=== PATIENT | female | born 1990 | race Caucasian/White ===

== ENCOUNTER → 2017-02-18 | Outpatient (CLI) | payer OTHER ==
[~2017-02-18] MED LIST: HYDR-3138 PO; NITR100C SL
== END | disposition home or self-care (01) ==
LOC: LAB 12:54
PROVIDERS: ATTEND Obstetrics & Gynecology
DX: N91.2 Amenorrhea, unspecified (principal)
CPT/HCPCS: 36415; 84144

== ENCOUNTER 2017-10-25 08:12 | Day surgery (SDC) | payer BC, OTHER ==
[~2017-10-25] VITALS: Ht 177.8 cm; Wt 103.5 kg
[~2017-10-25 08:12] MED LIST changes: -HYDR-3138 PO; +HYDR-3237 PO
[2017-10-25] MEDS ORDERED: LACTATED RINGERS 1,000 ML IV SCH (08:47)
[2017-10-25 08:51] VITALS: BP 118/83
[2017-10-25] MEDS ORDERED: METF500T27 PO (08:51)
[2017-10-25] MEDS ORDERED: PLEASE ENTER HEIGHT AND WEIGHT MC SCH (09:00)
[2017-10-25 09:46] LABS: HCG UR SG 1.016 (1.003-1.030)
[2017-10-25] MEDS ORDERED: BUPIVACAINE/PF 0.5% ONE (10:24)
[2017-10-25] MEDS ORDERED: BACITRACIN ZINC OINT 500U/GM, 0.9 GM ONE (10:24)
[2017-10-25] MEDS ORDERED: PHENYLEPHRINE NASAL 0.25%, 15ML SPRAY ONE (10:25)
[2017-10-25] MEDS ORDERED: EPINEPHRINE 1 MG/ML, 1ML ONE (10:25)
[2017-10-25] MEDS ORDERED: PROPOFOL 10 MG/ML, 20ML ONE (10:32)
[2017-10-25] MEDS ORDERED: NEOSTIGMINE 1 MG/ML, 10ML ONE (10:32)
[2017-10-25] MEDS ORDERED: DEXAMETHASONE 4 MG/ML, 1ML ONE (10:32)
[2017-10-25] MEDS ORDERED: GLYCOPYRROLATE 0.2MG/1ML, 5ML ONE (10:32)
[2017-10-25] MEDS ORDERED: ONDANSETRON 2MG/ML, 2ML ONE ×2 (10:32→12:06)
[2017-10-25] MEDS ORDERED: CEFAZOLIN 1,000 MG ONE (10:32)
[2017-10-25] MEDS ORDERED: ROCURONIUM 10 MG/ML,10ML ONE (10:32)
[2017-10-25] MEDS ORDERED: SUCCINYLCHOLINE 20 MG/ML, 10ML ONE (10:32)
[2017-10-25] MEDS ORDERED: MIDAZOLAM 1 MG/ML, 2ML ONE (10:36)
[2017-10-25] MEDS ORDERED: FENTANYL PF 100 MCG/2ML ONE ×3 (10:37→11:17)
[2017-10-25] MEDS ORDERED: LIDOCAINE-MPF 2% ,5ML ONE (10:53)
[2017-10-25] MEDS ORDERED: EPHEDRINE 50 MG/ML, 1ML IVPush PRN (11:30)
[2017-10-25] MEDS ORDERED: HYDROcodone/APAP 7.5-325MG/15ML UDC PO PRN (11:30)
[2017-10-25] MEDS ORDERED: FENTANYL PF 100 MCG/2ML IV PRN (11:30)
[2017-10-25] MEDS ORDERED: PROMETHAZINE 25 MG/ML, 1ML IV PRN (11:30)
[2017-10-25] MEDS ORDERED: METOCLOPRAMIDE 5 MG/ML, 2ML IV PRN (11:30)
[2017-10-25] MEDS ORDERED: ALBUTEROL SULFATE 2.5 MG/3 ML NPPB PRN (11:30)
[2017-10-25] MEDS ORDERED: MIDAZOLAM 1 MG/ML, 2ML IV PRN (11:30)
[2017-10-25] MEDS ORDERED: ONDANSETRON 2MG/ML, 2ML IVPush PRN (11:30)
[2017-10-25] MEDS ORDERED: HYDROmorphone 2 MG/ML, 1ML ONE (12:06)
[2017-10-25] MEDS ORDERED: HYDROcodone/APAP 7.5-325MG/15ML UDC ONE (12:06)
[2017-10-25] MEDS: HYDROmorphone 1 MG/ML, 1ML IV PRN ×4 (12:10→12:44)
== END 2017-10-25 14:50 | disposition home or self-care (01) ==
LOC: OUT 08:12
PROVIDERS: ATTEND Specialist
DX: J35.01 Chronic tonsillitis (principal); K21.9 Gastro-esophageal reflux disease without esophagitis
CPT/HCPCS: 42826; 81025; 88304; J0171; J0330; J0690; J1100; J1170; J2250; J2405; J2704; J2710; J3010; J3490; J7120

== ENCOUNTER 2018-11-14 09:37 | Emergency (ER) | payer BC, OTHER ==
[~2018-11-14] VITALS: Ht 177.8 cm; Wt 107.7 kg
[~2018-11-14 09:37] MED LIST changes: +METF500T27 PO
--- NOTE | 2018-11-14 09:47 | NUR ---
pt denies abd pain.
--- NOTE | 2018-11-14 10:06 | NUR ---
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
--- NOTE | 2018-11-14 10:20 | NUR ---
Assumed care of patient. MGLF onto right elbow, small abrasion, pain and swelling noted. Patient states she is and denies hitting stomach or head. Will continue to monitor.
--- NOTE | 2018-11-14 10:50 | NUR ---
Patient provided with ice for elbow.
[2018-11-14] MEDS ORDERED: RHOGAM FROM BLOOD BANK 1 NOTE EA IM/IV ONE (11:00)
--- NOTE | 2018-11-14 12:02 | NUR ---
Resting in [facility]. No needs.
[2018-11-14 13:06] VITALS: BP 121/75
--- NOTE | 2018-11-14 13:10 | NUR ---
[facility]og[facility] admin. Abrasion cleaned with soap and water. Bandaid and bacitracin placed on wound.
--- NOTE | 2018-11-14 13:17 | NUR ---
Patient/Caregiver given discharge instructions and they have confirmed that they understand the instructions. Patient ambulatory with steady gait.
== END 2018-11-14 13:17 | disposition home or self-care (01) ==
LOC: ED 11:21
DX: O9A.212 Injury, poisoning and certain other consequences of external causes complicating pregnancy, second trimester (principal); S46.811A Strain of other muscles, fascia and tendons at shoulder and upper arm level, right arm, initial encounter; S50.01XA Contusion of right elbow, initial encounter; Z3A.18 18 weeks gestation of pregnancy; W19.XXXA Unspecified fall, initial encounter; Y93.01 Activity, walking, marching and hiking; Y92.89 Other specified places as the place of occurrence of the external cause; Y99.8 Other external cause status
CPT/HCPCS: 36415; 36430; 73030; 73080; 86850; 86900; 96372; 99285; J2790

== ENCOUNTER 2019-03-28 18:11 | Outpatient (CLI) | payer OTHER ==
[2019-03-28 18:29] VITALS: BP 132/70
== END 2019-03-28 20:21 | disposition home or self-care (01) ==
LOC: LDOP 18:11
PROVIDERS: ATTEND Obstetrics & Gynecology
DX: O36.8130 Decreased fetal movements, third trimester, not applicable or unspecified (principal); Z3A.38 38 weeks gestation of pregnancy
CPT/HCPCS: 59025; 76815; 89060; 99211; G0463; Q0114

== ENCOUNTER 2019-04-02 23:49 | Outpatient (CLI) | payer OTHER ==
[~2019-04-02] VITALS: Ht 177.8 cm; Wt 113.6 kg
[~2019-04-02 23:49] MED LIST changes: +PREN1TAB60 PO
[2019-04-02 23:54] VITALS: BP 128/81
[2019-04-03] MEDS ORDERED: RANI-467 PO (01:01)
[2019-04-27] MEDS ORDERED: ACET325C6 PO ×2 (13:58→14:06)
== END 2019-04-03 01:30 | disposition home or self-care (01) ==
LOC: LDOP 23:49
PROVIDERS: ATTEND Obstetrics & Gynecology
DX: O62.9 Abnormality of forces of labor, unspecified (principal); O48.0 Post-term pregnancy; Z3A.40 40 weeks gestation of pregnancy
CPT/HCPCS: 59025; 99211; G0463

== ENCOUNTER 2019-04-03 03:55 | Inpatient (IN) | payer OTHER ==
[~2019-04-03] VITALS: Ht 175.3 cm; Wt 113.6 kg
[~2019-04-03 03:55] MED LIST changes: +RANI-467 PO
[2019-04-03] MEDS ORDERED: OXYTOCIN 30U/ 0.9% NaCL 500ML 500 ML IV ONE (04:22)
[2019-04-03] MEDS: LACTATED RINGERS 1,000 ML IV SCH ×2 (04:22→07:12)
[2019-04-03] MEDS ORDERED: FENTANYL/BUPIV./NS/PF 250 ML EPIDCONT SCH ×2 (04:24→07:42)
[2019-04-03] MEDS ORDERED: OXYTOCIN 30U/ 0.9% NaCL 500ML 500 ML ONE ×2 (04:26→14:03)
[2019-04-03] MEDS ORDERED: NEWBORN KIT ONE (04:26)
[2019-04-03] MEDS ORDERED: FENTANYL PF 100 MCG/2ML ONE ×2 (04:26→05:58)
[2019-04-03] MEDS ORDERED: ONDANSETRON 2MG/ML, 2ML ONE (04:27)
[2019-04-03] MEDS ORDERED: SODIUM CITRATE/CITRIC ACID 15 ML UDC PO PRN (04:30)
[2019-04-03] MEDS ORDERED: FENTANYL PF 100 MCG/2ML IV PRN (04:30)
[2019-04-03] MEDS ORDERED: CALCIUM CARBONATE 500 MG TAB.CHEW PO PRN (04:30)
[2019-04-03] MEDS ORDERED: ONDANSETRON 2MG/ML, 2ML IVPush PRN (04:30)
[2019-04-03] MEDS: FENTANYL PF 100 MCG/2ML IVPush PRN ×2 (04:40→06:07)
[2019-04-03 04:52] VITALS: BP 132/86
[2019-04-03 05:22] LABS: BASOPHILS # (AUTO) 0.02 x10^3/uL (0-0.1); BASOPHILS % (AUTO) 0 % (0-1); EOSINOPHILS # (AUTO) 0.07 x10^3/uL (0-0.4); EOSINOPHILS % (AUTO) 1 % (1-7); LYMPHOCYTES # (AUTO) 1.73 x10^3/uL (1-3.4); LYMPHOCYTES % (AUTO) 19 % (22-44); MD NO; MEAN CORPUSCULAR HEMOGLOBIN 29.3 pg (27.0-34.8); MEAN CORPUSCULAR HGB CONC 33.2 g/dL (32.4-35.8); MEAN CORPUSCULAR VOLUME 88.1 fL (80-100); MEAN PLATELET VOLUME 8.4 fL (7.4-10.4); MONOCYTES # (AUTO) 0.75 x10^3/uL (0.2-0.8); MONOCYTES % (AUTO) 9 % (2-9); NEUTROPHILS # (AUTO) 6.32 x10^3/uL (1.8-6.8); NEUTROPHILS % (AUTO) 71 % (42-75); PLATELET COUNT 192 x10^3/uL (130-400); RED BLOOD COUNT 3.86 x10^6/uL (3.82-5.3); RED CELL DISTRIBUTION WIDTH 13.2 % (9.6-15.2)
[2019-04-03] MEDS ORDERED: LACTATED RINGERS 1,000 ML IV SCH (07:42)
[2019-04-03] MEDS: D5%-LACTATED RINGERS 1,000 ML IV SCH ×2 (07:58→12:22)
[2019-04-03] MEDS ORDERED: NALOXONE 0.4 MG/ML, 1ML IVPush PRN (08:00)
[2019-04-03] MEDS ORDERED: EPHEDRINE 50 MG/ML, 1ML IVPush PRN (08:00)
[2019-04-03] MEDS ORDERED: LACTATED RINGERS 1,000 ML IVBOLUS PRN (08:00)
[2019-04-03] MEDS ORDERED: OXYTOCIN 30U/ 0.9% NaCL 500ML 500 ML IV PRN (08:35)
[2019-04-03] MEDS: IBUPROFEN 600 MG TABLET PO PRN ×2 (14:00→21:43)
[2019-04-03] MEDS ORDERED: IBUPROFEN 600 MG TABLET ONE (14:03)
[2019-04-03] MEDS ORDERED: OXYTOCIN 30U/ 0.9% NaCL 500ML 500 ML IV SCH (14:06)
[2019-04-03] MEDS ORDERED: OXYcodone/APAP 5/325MG TABLET PO PRN (14:30)
[2019-04-03] MEDS ORDERED: BISACODYL 10 MG SUPP PR PRN (14:30)
[2019-04-03] MEDS ORDERED: ONDANSETRON 2MG/ML, 2ML IV PRN (14:30)
[2019-04-03] MEDS ORDERED: ACETAMINOPHEN 325 MG TABLET PO PRN (14:30)
[2019-04-03] MEDS ORDERED: MISOPROSTOL 200 MCG TABLET PR PRN (14:30)
[2019-04-03 15:30] VITALS: BP 117/84
[2019-04-03] MEDS: OXYcodone/APAP 5/325MG TABLET PO PRN ×2 (17:18→21:43)
[2019-04-03 19:30] VITALS: BP 128/83
[2019-04-04 00:10] VITALS: BP 136/86
[2019-04-04] MEDS: OXYcodone/APAP 5/325MG TABLET PO PRN ×3 (03:30→20:44)
[2019-04-04 03:35] VITALS: BP 111/73
[2019-04-04 03:42] LABS: BASOPHILS # (AUTO) 0.03 x10^3/uL (0-0.1); BASOPHILS % (AUTO) 0 % (0-1); EOSINOPHILS # (AUTO) 0.23 x10^3/uL (0-0.4); EOSINOPHILS % (AUTO) 2 % (1-7); LYMPHOCYTES # (AUTO) 1.87 x10^3/uL (1-3.4); LYMPHOCYTES % (AUTO) 18 % (22-44); MD NO; MEAN CORPUSCULAR HEMOGLOBIN 30.3 pg (27.0-34.8); MEAN CORPUSCULAR HGB CONC 33.9 g/dL (32.4-35.8); MEAN CORPUSCULAR VOLUME 89.5 fL (80-100); MEAN PLATELET VOLUME 7.5 fL (7.4-10.4); MONOCYTES # (AUTO) 0.73 x10^3/uL (0.2-0.8); MONOCYTES % (AUTO) 7 % (2-9); NEUTROPHILS # (AUTO) 7.38 x10^3/uL (1.8-6.8); NEUTROPHILS % (AUTO) 72 % (42-75); PLATELET COUNT 199 x10^3/uL (130-400); RED BLOOD COUNT 3.51 x10^6/uL (3.82-5.3); RED CELL DISTRIBUTION WIDTH 13.9 % (9.6-15.2)
[2019-04-04] MEDS: IBUPROFEN 600 MG TABLET PO PRN ×3 (05:21→20:44)
[2019-04-04 06:55] VITALS: BP 120/82
[2019-04-04] MEDS: DOCUSATE 100 MG CAPSULE PO PRN ×2 (07:54→20:44)
[2019-04-04] MEDS: PRENATAL VIT/IRON/FA 1 EACH TABLET PO SCH (07:54)
[2019-04-04] MEDS ORDERED: RHOGAM FROM BLOOD BANK 1 NOTE EA IM/IV ONE (10:30)
[2019-04-04] MEDS ORDERED: CALCIUM CARBONATE 500 MG TAB.CHEW ONE (11:02)
[2019-04-04 11:50] VITALS: BP 125/86
[2019-04-04 19:40] VITALS: BP 124/85
[2019-04-05] MEDS: OXYcodone/APAP 5/325MG TABLET PO PRN (00:43)
[2019-04-05] MEDS: IBUPROFEN 600 MG TABLET PO PRN (02:43)
[2019-04-05] MEDS ORDERED: OXYC-302 PO (07:07)
[2019-04-05] MEDS ORDERED: IBUP-1222 PO (07:07)
[2019-04-05 07:50] VITALS: BP 144/89
[2019-04-05] MEDS: PRENATAL VIT/IRON/FA 1 EACH TABLET PO SCH (09:00)
[2019-04-05] MEDS ORDERED: CALCIUM CARBONATE 500 MG TAB.CHEW ONE (13:48)
[2019-04-05] MEDS: DOCUSATE 100 MG CAPSULE PO PRN (14:30)
[2019-04-27] MEDS ORDERED: ACET325C6 PO ×2 (13:58→14:06)
== END 2019-04-05 14:30 | disposition home or self-care (01) | DRG 807 ==
LOC: LDOP 03:55 → LDIP 04:29 → 2NW 15:05
PROVIDERS: ADMIT Obstetrics & Gynecology; ATTEND Obstetrics & Gynecology
PROC: 10E0XZZ Delivery of Products of Conception, External Approach (ICD-10-PCS; principal; 2019-04-03)
PROC: 0KQM0ZZ Repair Perineum Muscle, Open Approach (ICD-10-PCS; 2019-04-03)
PROC: 3E0234Z Introduction of Serum, Toxoid and Vaccine into Muscle, Percutaneous Approach (ICD-10-PCS; 2019-04-03)
PROC: 3E0R3BZ Introduction of Anesthetic Agent into Spinal Canal, Percutaneous Approach (ICD-10-PCS; 2019-04-03)
PROC: 00HU33Z Insertion of Infusion Device into Spinal Canal, Percutaneous Approach (ICD-10-PCS; 2019-04-03)
DX: O26.893 Other specified pregnancy related conditions, third trimester (principal); Z37.0 Single live birth; O70.1 Second degree perineal laceration during delivery; Z3A.38 38 weeks gestation of pregnancy; Z79.84 Long term (current) use of oral hypoglycemic drugs; Z67.41 Type O blood, Rh negative
CPT/HCPCS: 36415; J2790; J7121; 85025; 85461; 86850; 86900; G0378; J2405; J3010; J2590; J7120

== ENCOUNTER 2020-02-21 06:10 | Inpatient (IN) | payer OTHER ==
[~2020-02-21] VITALS: Ht 175.3 cm; Wt 97.3 kg
[~2020-02-21 06:10] MED LIST changes: +ACET325C6 PO; +IBUP-1222 PO; +OXYC-302 PO
[2020-02-21] MEDS ORDERED: D5%-LACTATED RINGERS 1,000 ML IV SCH (06:30)
[2020-02-21] MEDS ORDERED: DOXYCYCLINE 100MG TABLET PO ONE (06:30)
[2020-02-21] MEDS ORDERED: DOXYCYCLINE 100MG TABLET PO PRN (06:30)
[2020-02-21] MEDS ORDERED: LACTATED RINGERS 1,000 ML IV SCH ×2 (06:56→07:30)
[2020-02-21] MEDS ORDERED: OXYTOCIN 30U/ 0.9% NaCL 500ML 500 ML IV ONE (06:56)
[2020-02-21] MEDS ORDERED: FENTANYL PF 100 MCG/2ML IVPush PRN (07:00)
[2020-02-21] MEDS ORDERED: ONDANSETRON 2MG/ML, 2ML IVPush PRN (07:00)
[2020-02-21 07:06] LABS: BASOPHILS # (AUTO) 0.02 x10^3/uL (0-0.1); BASOPHILS % (AUTO) 0 % (0-1); EOSINOPHILS % (AUTO) 3 % (1-7); LYMPHOCYTES # (AUTO) 1.32 x10^3/uL (1-3.4); LYMPHOCYTES % (AUTO) 18 % (22-44); MD NO; MEAN CORPUSCULAR HEMOGLOBIN 31.2 pg (27.0-34.8); MEAN CORPUSCULAR HGB CONC 33.7 g/dL (32.4-35.8); MEAN CORPUSCULAR VOLUME 92.7 fL (80-100); MEAN PLATELET VOLUME 7.4 fL (7.4-10.4); MONOCYTES # (AUTO) 0.44 x10^3/uL (0.2-0.8); MONOCYTES % (AUTO) 6 % (2-9); NEUTROPHILS # (AUTO) 5.23 x10^3/uL (1.8-6.8); NEUTROPHILS % (AUTO) 73 % (42-75); PLATELET COUNT 199 x10^3/uL (130-400); RED CELL DISTRIBUTION WIDTH 13.2 % (9.6-15.2)
[2020-02-21 07:20] VITALS: BP 116/60
[2020-02-21] MEDS ORDERED: EPHEDRINE 50 MG/ML, 1ML IVPush PRN (07:30)
[2020-02-21] MEDS ORDERED: LACTATED RINGERS 1,000 ML IVBOLUS PRN (07:30)
[2020-02-21] MEDS ORDERED: FENTANYL/BUPIV./NS/PF 250 ML EPIDCONT SCH (07:30)
[2020-02-21] MEDS ORDERED: NALOXONE 0.4 MG/ML, 1ML IVPush PRN (07:30)
[2020-02-21] MEDS ORDERED: MISOPROSTOL 200 MCG TABLET ONE ×3 (07:39→11:38)
[2020-02-21] MEDS: MISOPROSTOL 100 MCG TABLET VG PRN ×3 (07:47→15:24)
[2020-02-21] MEDS ORDERED: FENTANYL/BUPIV./NS/PF 250 ML EPIDCONT ONE (07:57)
[2020-02-21] MEDS ORDERED: CEFAZOLIN 2,000 MG in SODIUM CHLORIDE 0.9% 50 ML IV ONE (09:00)
[2020-02-21] MEDS ORDERED: CEFAZOLIN PMX 2GM/50ML 50 ML IVPB ONE (09:00)
[2020-02-21] MEDS ORDERED: LIDOCAINE 1%, 20ML ONE (09:10)
[2020-02-21] MEDS ORDERED: OXYTOCIN 30U/ 0.9% NaCL 500ML 500 ML ONE (09:10)
[2020-02-21] MEDS ORDERED: OXYTOCIN 30U/ 0.9% NaCL 500ML 500 ML IV SCH (16:54)
[2020-02-21] MEDS ORDERED: OXYcodone IR 5MG TABLET PO PRN (17:00)
[2020-02-21] MEDS ORDERED: SIMETHICONE 80 MG CHEW TAB PO PRN (17:00)
[2020-02-21] MEDS ORDERED: ONDANSETRON 2MG/ML, 2ML IV PRN (17:00)
[2020-02-21] MEDS ORDERED: MISOPROSTOL 200 MCG TABLET PR PRN (17:00)
[2020-02-21] MEDS ORDERED: CARBOPROST TROMETHAMINE 250 MCG/ML, 1ML IM PRN (17:00)
[2020-02-21] MEDS ORDERED: OXYcodone/APAP 5/325MG TABLET PO PRN (17:00)
[2020-02-21] MEDS ORDERED: METHYLERGONOVINE 0.2 MG/ML IM PRN (17:00)
[2020-02-21] MEDS ORDERED: ACETAMINOPHEN 325 MG TABLET PO PRN (17:00)
[2020-02-21] MEDS ORDERED: IBUPROFEN 600 MG TABLET PO PRN (17:00)
[2020-02-21] MEDS ORDERED: DOCUSATE 100 MG CAPSULE PO PRN (17:00)
[2020-02-21] MEDS ORDERED: METHYLERGONOVINE 0.2MG TABLET ONE (17:25)
[2020-02-21] MEDS ORDERED: METHYLERGONOVINE 0.2MG TABLET PO ONE ×2 (17:30)
[2020-02-21 19:04] VITALS: BP 107/62
[2020-02-21] MEDS ORDERED: OXYcodone/APAP 5/325MG TABLET ONE (19:10)
[2020-02-21] MEDS ORDERED: IBUPROFEN 800 MG TABLET ONE (19:10)
[2020-02-21] MEDS ORDERED: IBUPROFEN 600 MG TABLET ONE (19:10)
[2020-02-21] MEDS ORDERED: MEASLES,MUMPS&RUBELLA VACC/PF 0.5 ML SQ-VACC ONE (19:30)
[2020-02-21] MEDS ORDERED: RHOGAM FROM BLOOD BANK 1 NOTE EA IM/IV ONE (19:30)
[2020-02-22 00:51] LABS: AMPHETAMINE SCREEN, URINE Negative (Negative); BARBITURATE SCREEN, URINE Negative (Negative); BENZODIAZEPINE SCREEN, URINE Negative (Negative); CANNABINOID SCREEN, URINE Negative (Negative); COCAINE SCREEN, URINE Negative (Negative); METHADONE SCREEN, URINE Negative (Negative); OPIATE SCREEN, URINE Negative (Negative)
[2020-02-22] MEDS ORDERED: PRENATAL VIT/IRON/FA 1 EACH TABLET PO SCH (09:00)
== END 2020-02-22 00:22 | disposition home or self-care (01) | DRG 806 ==
LOC: LDIP 06:10
PROVIDERS: ADMIT Obstetrics & Gynecology Maternal & Fetal Medicine; ATTEND Obstetrics & Gynecology Maternal & Fetal Medicine
PROC: 10E0XZZ Delivery of Products of Conception, External Approach (ICD-10-PCS; principal; 2020-02-21)
PROC: 3E0P7VZ Introduction of Hormone into Female Reproductive, Via Natural or Artificial Opening (ICD-10-PCS; 2020-02-21)
DX: O23.12 Infections of bladder in pregnancy, second trimester (principal); O36.4XX0 Maternal care for intrauterine death, not applicable or unspecified; Z37.1 Single stillbirth; O26.892 Other specified pregnancy related conditions, second trimester; Q96.9 Turner's syndrome, unspecified; Z3A.21 21 weeks gestation of pregnancy; Z67.91 Unspecified blood type, Rh negative
CPT/HCPCS: 36415; J7121; 80307; 85025; 85461; 86592; 86850; 86870; 86900; 86922; 86923; G0378; J0690; J2790; J7120

== ENCOUNTER 2020-03-14 15:11 | Emergency (ER) | payer BC ==
[~2020-03-14] VITALS: Ht 175.3 cm; Wt 99.3 kg
[2020-03-14] MEDS ORDERED: DEXAMETHASONE 4 MG TABLET ONE ×2 (15:46→15:48)
[2020-03-14] MEDS ORDERED: METHOCARBAMOL 750 MG TABLET ONE (15:46)
[2020-03-14] MEDS ORDERED: METHOCARBAMOL 750 MG TABLET PO ONE (16:00)
[2020-03-14] MEDS ORDERED: DEXAMETHASONE 4 MG TABLET PO ONE (16:00)
[2020-03-14 17:31] VITALS: BP 102/69
== END 2020-03-14 17:42 | disposition home or self-care (01) ==
LOC: ED 16:46
DX: M51.16 Intervertebral disc disorders with radiculopathy, lumbar region (principal); M48.061 Spinal stenosis, lumbar region without neurogenic claudication; Z90.49 Acquired absence of other specified parts of digestive tract
CPT/HCPCS: 72131; 99284